=== PATIENT | male | born 1950 | race Caucasian/White ===

== ENCOUNTER 2019-01-18 07:00 | Day surgery (SDC) | payer OTHER ==
[2019-01-17 08:51] LABS: ANION GAP 11.7 mmol/L (8-16); CALCIUM 9.4 mg/dL (8.5-10.1); CARBON DIOXIDE 28.2 mmol/L (21.0-32.0); CREATININE - SERUM 1.1 mg/dL (0.6-1.3); POTASSIUM - SERUM 3.9 mmol/L (3.5-5.1)
[2019-01-17 09:00] LABS: HEMATOCRIT 41.8 % (42.0-54.0); HEMOGLOBIN 14.2 g/dL (13.5-17.5); MCH 29.5 pg (26.0-34.0); MCV 86.7 fL (80.0-100.0); MEAN PLATELET VOLUME 9.9 fL (7.4-10.4); RBC 4.82 10x6/uL (4.20-6.10); RDW 12.9 % (11.5-14.5); WBC 6.2 10x3/uL (4.8-10.8)
[~2019-01-18] VITALS: Ht 167.6 cm; Wt 88.5 kg
[2019-01-18 08:08] VITALS: BP 123/69; Ht 167.6 cm; Wt 88.5 kg
[2019-01-18] MEDS ORDERED: LIPITOR20 MG PO (08:15)
[2019-01-18] MEDS ORDERED: NORVASC5 MG PO (08:15)
[2019-01-18] MEDS ORDERED: PRINIVIL20 MG PO (08:16)
[2019-01-18] MEDS ORDERED: GLUCOTROL 5 MG T5 MG PO (08:16)
[2019-01-18] MEDS ORDERED: GLUCOPHAGE1000 MG PO (08:17)
[2019-01-18] MEDS ORDERED: OMEPRAZOLE20 M1 PO (08:18)
[2019-01-18] MEDS ORDERED: TOPAMAX15 MG PO (08:18)
[2019-01-18] MEDS ORDERED: TOPROL XL100 MG PO (08:18)
--- NOTE | 2019-01-18 10:58 | NUR ---
1050 DR. WELSH ROUNDS 1055 UP TO BR VOIDS A FEW DRIBBLES WITH A LITTLE BLOOD, RETURNED TO BED.
--- NOTE | 2019-01-18 11:03 | NUR ---
1100 STATES HAS A FEELING ON NEEDING TO VOID AND ASKED IF THAT WAS NORMAL, I SAID IT WAS. AND PROVIDED PT WITH A URINAL. FL ADA DIET SERVED. AT BEDSIDE.
--- NOTE | 2019-01-18 12:07 | OP ---
PATIENT NAME: CAROLE LAM MEDICAL RECORD: [id number] :54 LOCATION:[facility] ADMISSION DATE: SURGEON: CASE WELSH MD DATE OF OPERATION: 01/18/2019 SURGEON: Case Welsh MD ANESTHESIA: TIVA by Maurice Noguera CRNA DIAGNOSES: Obstructive benign prostatic hyperplasia with PSA of 1.74, IPSS equals 21, and quality of life score is 6. Prostate size is 30 grams on digital rectal examination. PROCEDURE: UroLift times 4. IMPLANTS: In the box configuration. FINDINGS: No urethral strictures. Nonobstructive lateral lobes. Obstruction from a tight bladder neck. There are no bladder tumors. There is some inflammation of the bladder mucosa. He has single ureteral orifices bilaterally. ESTIMATED BLOOD LOSS: None. CLINICAL HISTORY: This is a 68-year-old male, who had a complaint of perineal pain for over 1 year. He also has pain with ejaculation. He has previously been treated for prostatitis and urethritis with antibiotics. He has a complaint of daytime urinary frequency every 1 hour with a weak urinary stream and some splitting of the stream. He has nocturia times 1. His IPSS and quality of life scores are quite high. He wishes to have cystoscopy performed to check for obstruction and to treat the obstruction. If he has a urethral stricture from his previous urethritis, we will deal with that. If his prostate is obstructed, then he wishes to have the UroLift procedure done. He is not allergic to any medications. He was given [facility] oncology patient navigator to the OR. DESCRIPTION OF PROCEDURE: The patient was given IV sedation. He was then placed into lithotomy position and prepped and draped. We used the UroLift scope and identified no urethral strictures at all. The lateral lobes of the prostate are not obstructive. The main site of obstruction was the bladder neck. Going into the bladder neck, we saw mildly trabeculated bladder, which was with an inflamed mucosa. No bladder tumors were seen. Four UroLift units were then implanted all around the bladder neck in a box configuration. We placed the units 1.5 cm distal to the bladder neck. The first 2 were placed at the anterolateral sulcus, one on each side. The remaining tumor placed at the mid prosthetic urethral level, one on each side. This opened up the bladder neck significantly. I left the bladder partly full for a voiding trial. We will see the patient back in followup in 1 months' time. TRANSINT:[id number] Voice Confirmation ID: [id number] DOCUMENT ID: [id number] OPERATIVE REPORT [id number] CAROLE LAM ROBERT S MD at 1207 CC: [id number] DICTATION DATE: 01/18/19 1047 [employer] WORKER: 01/18/19 1203 [id number] [place] [address]
--- NOTE | 2019-01-18 12:39 | NUR ---
1220 [place] ATTEMPTED BY LEILA MORA RN UNSUCESSFULLY, DR. WELSH HERE ATTEMPTED UNSUCESSFULLY WITH 18 DID FINANNLY GET WITH SPECIAL TIP CATH FROM TROUBLE CART BY DR. WELSH. 1240 IV DC'D WITH CATH INTACT. DC INSTS. REVIEWED VOICED UNDERSTANDING GETTING DRESSED.
== END 2019-01-18 12:50 | disposition home or self-care (01) ==
LOC: D.OPS 07:00 → D.PAN 10:10 → D.OPS 10:30
PROVIDERS: Anesthesiology; ATTEND Urology
DX: N32.0 Bladder-neck obstruction (principal); N40.0 Benign prostatic hyperplasia without lower urinary tract symptoms; Z01.812 Encounter for preprocedural laboratory examination